=== PATIENT | male | born 1975 | race Caucasian/White ===

== ENCOUNTER 2024-04-24 21:33 | Emergency (ER) | payer OTHER, BC, SELFPAY ==
[2024-04-24 21:38] VITALS: BP 181/82; PULSE 77; TEMP 36.8; O2SAT 96; BMI 37.9
--- NOTE | 2024-04-24 21:55 | CT_ITS ---
The [address] [address] Patient Name: ANUJA ALFARO MRN: [id number] date: 1975 Sex: M Assigned Patient Location: ER Current Patient Location: ER Accession/Order Number: [id number] Exam Date: 04/24/2024 22:07 Report Date: 04/24/2024 22:37 At the request of: DANIEL CABELLO Procedure: CT cervical spine wo con EXAM: CT scan of the cervical spine without contrast. Dose reduction technique used: Automated exposure control and/or adjustment of the mA and/or kV according to patient size and/or use of iterative reconstruction technique. REASON FOR EXAM: head injury COMPARISON: None FINDINGS: No fractures, dislocations or acute malalignment of the cervical spine. Cervical spine degenerative changes with multilevel bilateral mild and moderate neural foraminal stenoses. No substantial spinal canal stenoses. Remainder unremarkable. CT/CT cervical spine wo con IMPRESSION: No acute cervical spine abnormalities. Electronically authenticated by: WINIFRED TODD Date: 04/24/2024 22:37
--- NOTE | 2024-04-24 21:55 | CT_ITS ---
The [address] [address] Patient Name: ANUJA ALFARO MRN: [id number] date: 1975 Sex: M Assigned Patient Location: ER Current Patient Location: ER Accession/Order Number: [id number] Exam Date: 04/24/2024 22:07 Report Date: 04/24/2024 22:38 At the request of: DANIEL CABELLO Procedure: CT head/brain wo con Head CT 04/24/2024 9:07 PM CDT History: head injury. Comparison: None Technique: Unenhanced CT imaging of the head. This CT exam was performed using one or more of the following dose reduction techniques: Automated exposure control, adjustment of the mA and/or KV according to patient size, or use of iterative reconstruction technique. Findings: There is no evidence of acute intracranial abnormality. Specifically, there is no evidence of acute hemorrhage, infarct, contusion, hydrocephalus, midline shift, or abnormal extra-axial collection. The calvarium is intact. The paranasal sinuses and mastoid air cells are clear. CT/CT head/brain wo con Impression: 1. No acute intracranial abnormality. Electronically authenticated by: ADENIKE DEWITT Date: 04/24/2024 22:38
--- NOTE | 2024-04-24 21:56 | ED.WOUNDLAC1 ---
HPI - Wound/Laceration General Chief Complaint: Wound/Laceration Stated Complaint: LACERATION Time Seen by Provider: 04/24/24 21:51 Source: patient Mode of arrival: walk-in Limitations: no limitations History of Present Illness HPI narrative: describes hose at work snapping back and striking him just above the left eye. State transient darkness but did not pass out. No associated nausea or vomiting. Neg visual complaint of neck pain. Presents now because of the laceration. Injury just [employer] A[employer]LYST. states co worker sprayed wound with something to stop the bleeding Related Data Home Medications ?Medication ?Instructions ?Recorded ?Confirmed atorvastatin 80 mg tablet 80 mg PO DAILY 04/24/24 04/24/24 escitalopram oxalate 20 mg tablet 20 mg PO QDAY 04/24/24 04/24/24 hydrochlorothiazide 25 mg tablet 12.5 mg PO DAILY 04/24/24 04/24/24 lisinopril 30 mg tablet 30 mg PO DAILY 04/24/24 04/24/24 meloxicam 15 mg tablet 15 mg PO DAILY 04/24/24 04/24/24 metformin 1,000 mg tablet 1,000 mg PO BID 04/24/24 04/24/24 terazosin 1 mg capsule 1 mg PO DAILY 04/24/24 04/24/24 Allergies Allergy/AdvReac Type Severity Reaction Status Date / Time No Known Drug Allergies Allergy Verified 04/24/24 21:38 Review of Systems ROS Status of ROS 10 or more systems reviewed and unremarkable except as noted in history and below Exam Constitutional Vital Signs, click to edit/add: Last Vital Signs Temp 98.2 F 04/24/24 21:38 Pulse 77 04/24/24 21:38 Resp 18 04/24/24 21:38 BP 181/82 H 04/24/24 21:38 Pulse Ox 96 04/24/24 21:38 O2 Del Method Room Air 04/24/24 21:38 Common normals: no apparent distress, oriented x3, healthy appearing, alert and well nourished [facility] Face and sinus images: 1. laceration Eye Common normals: PERRL, EOMs intact bilaterally and conjunctivae normal Respiratory Common normals: normal respiratory effort, no retractions, no use of accessory muscles and clear to auscultation bilaterally Cardio Common normals: regular rate, regular rhythm, S1 normal heart sound and S2 normal heart sound GI Common normals: Normal to inspection, nondistended, normoactive bowel sounds present, soft to palpation and non-tender Extremity Common normals: normal to inspection and full ROM Neuro Common normals: oriented x3, CN's II-XII intact bilaterally, moves all extremities, no focal motor deficits and no sensory deficits noted Psych Appearance: grossly normal Course Vital Signs Vital signs: Vital Signs Temperature 98.2 F 04/24/24 21:38 Pulse Rate 77 04/24/24 21:38 Respiratory Rate 18 04/24/24 21:38 Blood Pressure 181/82 H 04/24/24 21:38 Pulse Oximetry 96 04/24/24 21:38 Oxygen Delivery Method Room Air 04/24/24 21:38 Temperature 98.2 F 04/24/24 21:38 Pulse Rate 77 04/24/24 21:38 Respiratory Rate 18 04/24/24 21:38 Blood Pressure 181/82 H 04/24/24 21:38 Pulse Oximetry 96 04/24/24 21:38 Oxygen Delivery Method Room Air 04/24/24 21:38 MDM - Wound/Laceration MDM Narrative Medical decision making narrative: presents from work after he was struck in the forehead by a large hose. sustained laceration and transient everything going black but no LOC. No systemic symptoms. CT ordered. Lac repaired without incident Discharge Plan Discharge Stand Alone Forms: Work/School Release, Portal Instructions Chief Complaint: Wound/Laceration Clinical Impression: Laceration, Minor closed head injury Patient Disposition: Home, Self-Care Prescriptions / Home Meds: No Action metformin 1,000 mg tablet 1,000 mg PO BID atorvastatin 80 mg tablet 80 mg PO DAILY lisinopril 30 mg tablet 30 mg PO DAILY terazosin 1 mg capsule 1 mg PO DAILY hydrochlorothiazide 25 mg tablet 12.5 mg PO DAILY meloxicam 15 mg tablet 15 mg PO DAILY escitalopram oxalate 20 mg tablet 20 mg PO QDAY Print Language: Norwegian Instructions: Laceration (ED), Head Injury (ED) Additional Instructions: have wound rechecked in 2-3 days and stitches removed in 5-6 days Referrals: Physician,Non-Staff, MD [Primary Care Provider] - 1 week Procedures ED Procedure Instructions Procedures Procedures: 3cm lac forehead. SQ lac. no obvious FB in wound. 1% lido as a local. Site cleaned with betadine and rinsed with saline. Closed with # 4 6.0 nylon stitches. Tolerated well. No complications
[2024-04-24] MEDS: LIDOCAINE HCL 1% 100 MG/10 ML MDV INJ (22:34)
[2024-04-24] MEDS: IBUPROFEN 400 MG TABLET 800 MG PO (22:34)
[2024-04-24] MEDS: AMOXICILLIN/POTASSIUM CLAV 1 TAB TABLET PO (23:20)
== END 2024-04-24 23:32 | disposition home or self-care (01) ==
PROVIDERS: Emergency Provider Internal Medicine
DX: S01.81XA Laceration without foreign body of other part of head, initial encounter (principal); S09.8XXA Other specified injuries of head, initial encounter; W22.8XXA Striking against or struck by other objects, initial encounter
CPT/HCPCS: 12013; 70450; 72125; 99284